=== PATIENT | female | born 2005 | race Caucasian/White ===

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

== ENCOUNTER 2024-09-28 11:11 | Emergency (ER) | payer BC, SELFPAY ==
[2024-09-28 11:24] VITALS: BP 121/78; PULSE 82; RESP 16; TEMP 36.6; O2SAT 98
[2024-09-28 13:11] VITALS: BP 146/77; PULSE 72; RESP 20; TEMP 36.6; O2SAT 99
--- NOTE | 2024-09-28 14:10 | W.ED.GENAD ---
Discharge Plan Discharge Details Chief Complaint: EarProblem Primary Care Provider: Joo Mortensen ED Provider: Cindy Marks Home Meds and New Rx's Prescriptions: No Action Mirena 20 mcg/24 hours (7 yrs) 52 mg intrauterine device 1 device intrauterine ONCE Rx Instructions: as a single dose ciprofloxacin-dexamethasone 0.3-0.1 % drops,suspension 4 drp otic (ear) BID amoxicillin-pot clavulanate 875-125 mg tablet 1 tab PO BID 10 Days Qty: 20 0RF Rx Instructions: Take with meal. Take 1 pill every 12 hour fluconazole 150 mg tablet 150 mg PO Q3D Qty: 2 0RF Rx Instructions: may repeat second dose 72 hrs after first dose if symptoms persist famotidine 40 mg tablet See Rx Instructions .ROUTE .COMPLEX Qty: 180 0RF Dose Instruction: TAKE 1 TABLET BY MOUTH TWICE DAILY Rx Instructions: TAKE 1 TABLET BY MOUTH TWICE DAILY polyethylene glycol 3350 [Miralax] 17 gram/dose powder 17 g PO DAILY Qty: 238 0RF Rx Instructions: hold for diarrhea omeprazole 40 mg capsule,delayed release(DR/EC) 1 cap PO DAILY Patient Comments: TAKE ONE CAPSULE BY MOUTH EVERY DAY ondansetron 4 mg tablet,disintegrating 4 mg PO BID-TID PRN (Reason: nausea and vomiting) Qty: 6 0RF HPI General Date/Time Provider Initiated Documentation: 09/28/24 13:48. Limitations to Documentation: no limitations. Information obtained by: patient, RN notes reviewed and old records reviewed. History of Present Illness 18 year old F presents to the emergency department with the chief complaint of bilateral ear pain, worsening, described as severe, with intensity rated at 10. Quality is described as stabbing, and is localized to the face (bilateral ears). Patient neck. Patient started experiencing this day(s) and it has been constant. No relieving factors improve symptom(s), No exacerbating factors reported . Patient notes fever/chills, headaches, loss of appetite and malaise; denies chest pain, diaphoresis, nausea/vomiting, rash and shortness of breath. Patient did receive the following treatments prior to arrival, other (topical steroids, oral abx) Related Data Home Medications ?Medication ?Instructions ?Recorded ?Confirmed levonorgestrel 21 mcg/24 hr (up to 1 device intrauterine ONCE 03/10/22 09/13/22 8 years) 52 mg intrauterine device (Mirena) polyethylene glycol 3350 17 17 g PO DAILY #238 grams 03/24/22 04/15/22 gram/dose oral powder (Miralax) omeprazole 40 mg capsule,delayed 1 cap PO DAILY 04/14/22 04/15/22 release ondansetron 4 mg disintegrating 4 mg PO BID-TID PRN nausea and 04/14/22 09/13/22 tablet vomiting #6 tabs famotidine 40 mg tablet See Rx Instructions .Route 02/13/23 .COMPLEX #180 tabs amoxicillin 875 mg-potassium 1 tab PO BID 10 days #20 tabs 09/26/24 09/26/24 clavulanate 125 mg tablet ciprofloxacin 0.3 %-dexamethasone 4 drp otic (ear) BID 09/26/24 0.1 % ear drops,suspension fluconazole 150 mg tablet 150 mg PO Q3D 2 doses #2 tabs 09/26/24 09/26/24 Previous Rx's ?Medication ?Instructions ?Recorded polyethylene glycol 3350 17 17 g PO DAILY #238 grams 03/24/22 gram/dose oral powder (Miralax) ondansetron 4 mg disintegrating 4 mg PO BID-TID PRN nausea and 04/14/22 tablet vomiting #6 tabs famotidine 40 mg tablet See Rx Instructions .Route 02/13/23 .COMPLEX #180 tabs amoxicillin 875 mg-potassium 1 tab PO BID 10 days #20 tabs 09/26/24 clavulanate 125 mg tablet fluconazole 150 mg tablet 150 mg PO Q3D 2 doses #2 tabs 09/26/24 Allergies Allergy/AdvReac Type Severity Reaction Status Date / Time doxycycline AdvReac Severe vomiting Unverified 09/28/24 11:32 codeine AdvReac Intermediate unknown Unverified 09/28/24 11:32 shellfish derived AdvReac Intermediate Hives Unverified 09/28/24 11:32 Sulfa (Sulfonamide AdvReac Intermediate unknown Unverified 09/28/24 11:32 Antibiotics) General Stated Complaint: EarProblem [place]KA: 3 Review of Systems Constitutional Constitutional: Reports as per HPI, Reports fatigue, Reports fever(s), Denies headache(s), Reports lethargy, Reports malaise and Reports poor appetite Eyes Eyes: Reports as per HPI, Denies eye discharge and Denies irritation ENT Ears, Nose, Mouth, and Throat: Reports as per HPI, Reports abnormal hearing, Denies change in voice, Reports ear discharge, Reports otalgia, Denies headache(s), Denies odynophagia, Denies disequilibrium, Denies sinus pressure and Denies sore throat Cardiovascular Cardiovascular: Reports as per HPI, Denies chest pain and Denies dyspnea Respiratory Respiratory: Reports as per HPI, Denies cough and Denies dyspnea Gastrointestinal Gastrointestinal: Reports as per HPI, Denies abdominal pain, Denies change in bowel habits, Denies nausea, Denies odynophagia and Denies vomiting Integumentary/Breasts Skin/Breast: Reports as per HPI and Denies rash Neurologic Neurologic: Reports as per HPI, Reports abnormal hearing, Denies headache(s) and Denies disequilibrium Endocrine Endocrine: Reports fatigue Exam Const General: cooperative, healthy appearing, uncomfortable (tearful), no acute distress, well developed and well groomed Nutritional Appearance: average body habitus and well nourished Orientation: alert and awake [facility] Head: normal to inspection, normocephalic and atraumatic Ears: no periauricular adenopathy, external ear abnormal auricular tenderness bilaterally and pain with movement of external ear bilaterally, mastoid abnormal (tender on left) and unable to visualize TM (white discharge and swelling obstructing view) bilaterally General nose exam: external nose normal and nares normal Face and sinus: normal facial exam, sinuses nontender and face symmetric Mouth: oral mucosae normal, lip normal, tongue normal, oropharynx normal and moist mucous membranes Teeth and gingiva: dentition normal (recent dental work visualized left lower tooth) Throat: posterior oropharynx normal, tonsils normal and uvula midline Eyes General: appearance normal, both eyes and all related structures Neck Neck: normal visual inspection, full ROM, no lymphadenopathy and no meningeal signs Resp Effort & Inspection: normal respiratory effort, able to speak in complete sentences and no respiratory distress Auscultation: clear to auscultation bilaterally, no rales, no rhonchi and no wheezes Cardio Rate: regular rate Rhythm: regular rhythm Heart Sounds: S1 normal and S2 normal Skin General skin exam: no rashes or lesions noted Neuro General: patient alert and patient awake Cognition: normal cognition Speech: speech normal Gait: normal gait Course Vital Signs Vital signs: Vital Signs Temperature 36.6 C 04/16/25 11:24 Pulse 82 09/28/24 11:24 Respiratory Rate 16 09/28/24 11:24 Blood Pressure 121/78 09/28/24 11:24 Pulse Oximetry 98 09/28/24 11:24 Temperature 36.6 C 09/28/24 13:11 Temperature Source Oral 09/28/24 13:11 Pulse 72 09/28/24 13:11 Pulse Rhythm Regular 09/28/24 13:11 Pulse Strength Normal 09/28/24 13:11 Respiratory Rate 20 09/28/24 13:11 Respiratory Effort Normal 09/28/24 13:11 Respiratory Depth Normal 09/28/24 13:11 Respiratory Pattern Normal 09/28/24 13:11 Blood Pressure 146/77 H 09/28/24 13:11 Blood Pressure Mean 100 09/28/24 13:11 Blood Pressure Position Sitting 09/28/24 13:11 Pulse Oximetry 99 09/28/24 13:11 Oxygen Delivery Method Room Air 09/28/24 13:11 Oxygen Flow Rate 0 09/28/24 13:11 Pain Level 8 09/28/24 11:24 Medical Decision Making Patient is a pleasant 18-year-old female, brought in by her mother, with chief complaint of bilateral ear pain. Patient reports that the pain began about 4 days ago and she was initially seen in [facility]. She Reports That She Has Been Using Ciprofloxacin and Dexamethasone Drops As Prescribed for the past 4 Days. Despite This, the Patient's Pain Has Increased. She Was Then Seen at [facility] 2 Days Ago to Confirm Diagnosis of Otitis Externa. Patient Has Not Had Any Issues like This Historically. Unclear Etiology Cause As Patient Did Not Use Any earplugs, has not been swimming. In the addition to the ciprofloxacin and dexamethasone drops, patient was also started on Augmentin. Despite this, the pain has continued to increase send patient is having difficulty hearing. On exam, patient appears anxious and uncomfortable but not acutely toxic. She is afebrile and appears non-toxic. Patient does not have any erythema or appreciable swelling around the ears but she does have some redness and dry skin at the lateral part of the internal auditory canal. Both of these are all quite swollen compared to the left side which she was more tender and does have white thick discharge. Hearing is diminished but still seems adequate. She has tenderness over kelton left mastoid. She has discomfort when opening the mouth which does limit this some- causes radiation to the left ear. No findings of meningitis. With the progression of the symptoms despite conservative management, will obtain imaging to evaluate for any abscess, early infiltrates this is mastoiditis. Will give Tylenol and Toradol to help with discomfort. Management thus far does seem quite reasonable, unclear why she is not responding well but the patient would likely benefit from awake as she seems to have difficulty getting the drops transiently infiltrating into the despite these being appropriate management. At the midnight shift, care transitioned to oncoming clinician with imaging pending. I did hold off on placing him awake until the imaging has been completed as do not want this to cause any issues with visualization. Quality:SDOH Health Related Social Needs: No Data to Display PFSH All Active Problems (Updated 10/14/22 @ 00:03 by CHITRA DEJESUS) COVID-19 (Acute) Constipation (Acute) GERD (gastroesophageal reflux disease) (Chronic) Abdominal pain (Acute) Medical History Anxiety Chronic constipation Muscular dystrophy Surgical History Hx of knee surgery Social History Smoking/Tobacco Use Status: Never Smoking risk assessment performed?: Yes Alcohol Intake: never Drug use: Never Substance use type: does not use Housing: house Do you feel safe at home: Yes Do you feel safe in your relationship?: Yes
--- NOTE | 2024-09-28 14:36 | DI.CT_ITS ---
Exam(s) CT NECK W EXAM: CT NECK W CLINICAL HISTORY: otitis externa with mastoid tenderness. TECHNIQUE: Imaging Protocol: Axial computed tomography images with coronal and sagittal reformatted images were created and reviewed CONTRAST MATERIAL: Intravenous: Omnipaque 350 Contrast volume:100 ml contrast COMPARISON: No exams were available for comparison FINDINGS: Parotids: Normal. Submandibular glands: Normal. Thyroid gland: Normal. Lymph nodes: There are scattered lymph nodes seen along the level one to level three all measuring le ss than 8 mm in short axis diameter which are physiologic in nature. Carotids arteries: No significant stenosis or dissection. Vertebral arteries: No significant stenosis or dissection. The floor the mouth is unremarkable. The tonsils and adenoids are unremarkable. The epiglottis and vocal cords are within normal limits. Lungs: Images through both lung apices are unremarkable. Bones: No areas of bony destruction. Cervical spine is unremarkable. Visualized portions of the brain and orbits: Unremarkable. Sinuses and mastoids: Clear. No bony destruction. Soft tissues: there is soft tissue density material within both external auditory canals as well as s oft tissue swelling around both external auditory canals which appears roughly symmetric. No visible drainable abscess or abnormal gas collection. The internal auditory canals appear clear. IMPRESSION: Findings consistent with bilateral otitis externa. No bony destruction is visible. No abscess or fl uid collection. RADIATION DOSE DELIVERED: Total DLP DATA REPOSITORY: All CT scans at this facility are submitted to the National Radiology Data Registry (NRDR) Dose Index Registry (DIR) with the [employer] ([employer]). RADIATION OPTIMIZATION: All CT scans at this facility use at least one of these dose optimization te chniques: automated exposure control; mA and/or kV adjustment per patient size (includes targeted exa ms where dose is matched to clinical indication); or iterative reconstruction.
[2024-09-28 15:04] LABS: Abs Immature Grans 0.03 10^3/uL (0.0-0.06); Absolute Basophil Count 0.05 10^3/uL (0.0-0.2); Absolute Eosinophil Count 0.12 10^3/uL (0.0-0.7); Absolute Lymphocyte Count 1.69 10^3/uL (1.2-3.4); Absolute Monocyte Count 0.53 10^3/uL (0.1-0.8); Basophils % 0.5 %; Eosinophils % 1.1 %; HCT 45.1 % (36.0-46.0); HGB 15.2 g/dL (11.2-15.7); Immature Grans % 0.3 %; Lymphocytes % 15.8 %; MCH 30.8 pg (27.0-33.0); MCHC 33.7 % (32.0-36.0); MCV 91 fL (80-95); MPV 9.7 fL (8.0-11.0); Monocytes % 4.9 %; Neutrophils % 77.4 %; Platelet Count 286 10^3/uL (130-400); RBC 4.94 10^6/uL (3.93-5.22); RDW 13.1 % (11.7-14.6); RDW-SD 43.8 fL; WBC 10.72 10^3/uL (4.4-10.8)
[2024-09-28] MEDS: Ketorolac 30 MG/ML VIAL IVP (15:08)
[2024-09-28] MEDS: Acetaminophen 500 MG TAB 1000 MG PO (15:08)
[2024-09-28] MEDS: Normal Saline 1,000 ML 1000 ML IV (15:09)
[2024-09-28 15:24] VITALS: BP 139/85; PULSE 89; RESP 16; TEMP 36.9; O2SAT 97
[2024-09-28 15:31] LABS: ALT 46 U/L (14-59); AST 18 U/L (15-37); Albumin 3.6 g/dL (3.4-5.0); Alkaline Phosphatase 85 U/L (46-116); Anion Gap 11.8 mmol/L (3-11); BUN 5 mg/dL (7-18); Bilirubin, Total 0.5 mg/dL (0.2-1.0); CO2 25.2 mmol/L (21.0-32.0); CREATININE 0.7 mg/dL (0.55-1.02); Calcium 9.4 mg/dL (8.5-10.1); Chloride 105 mmol/L (98-107); Glucose 83 mg/dL (74-106); Magnesium 1.9 mg/dL (1.8-2.4); Potassium 3.5 mmol/L (3.5-5.1); Sodium 142 mmol/L (136-145); Total Protein 8.1 g/dL (6.4-8.2)
[2024-09-28] MEDS: Omnipaque 350 MG/ML 100 ML BTL IJ (15:36)
[2024-09-28] MEDS: Normal Saline - Diluent 50 ML VIAL IJ (15:36)
--- NOTE | 2024-10-01 06:30 | W.ED.FU ---
Date of service: 10/01/24 Time of Service: 06:30 Follow Up Plan: Patient did request that I evaluate her left ear in follow-up. Left ear still does demonstrate evidence of otitis externa. She is out of her Ciprodex drops. I do feel that it is reasonable to refill this for continued treatment. Right tympanic membrane and right otic canal are notably improved in appearance. No evidence of tympanic membrane rupture bilaterally. Ciprodex prescription was given.
== END 2024-09-28 16:41 | disposition home or self-care (01) ==
PROVIDERS: Physician Assistant; Emergency Provider Physician Assistant; PCP Physician Assistant Medical
DX: H60.503 Unspecified acute noninfective otitis externa, bilateral (principal); G71.00 Muscular dystrophy, unspecified
CPT/HCPCS: 36415; 70491; 80053; 96361; 96374; 99285; 83735; 85025; J1885; J3490

== ENCOUNTER 2024-10-05 07:45 | Emergency (ER) | payer BC, SELFPAY ==
[2024-10-05 07:49] VITALS: BP 146/86; PULSE 71; RESP 18; TEMP 36.3; O2SAT 99
[2024-10-05 07:52] VITALS: BP 146/86; PULSE 71; RESP 18; TEMP 36.3; O2SAT 99
--- NOTE | 2024-10-05 07:54 | DI.CT_ITS ---
Exam(s) CT ABDOMEN PELVIS W EXAM: CT ABDOMEN PELVIS W CLINICAL HISTORY: L. flank, LLQ and periumbilical abd pain, vomiting TECHNIQUE: Imaging Protocol: Axial computed tomography images with coronal and sagittal reformatted images were created and reviewed. CONTRAST MATERIAL: Intravenous: Omnipaque 350 Contrast volume:75 mL Oral: No COMPARISON: CT CT ABDOMEN PELVIS W from 04/10/[address] CHEST PE CTA from 09/13/2022 FINDINGS: ABDOMEN: Lung Bases: No acute abnormality. Liver: Normal density. No measurable mass. Portal, Superior Mesenteric, and Splenic Veins: Unremarkable. Gallbladder and Biliary Tract: No radiodense calculus or dilation. Pancreas: Normal density, no abnormal calcifications or inflammatory process. Spleen: Normal. Adrenals: No masses seen. Kidneys: Normal size, contour and axis. No radiodense stones or obstructive uropathy. No masses seen. Abdominal Aorta: Abdominal portion non-dilated. Bowel: No obstruction or bowel wall thickening. Appendix is unremarkable. Peritoneal Cavity: No ascites, collection or mesenteric inflammatory response. No free air. Lymph Nodes: Within normal limits. Bones: Within normal limits for the patient's age. Soft Tissues: Unremarkable. PELVIS: Bladder: There is a 2 mm calcification in the dependent portion of the urinary bladder which may repr esent a recently passed stone. Reproductive Organs: There is an IUD which appears in good position. There is a 1.6 cm corpus luteal cyst on the right ovary. The ovaries are otherwise unremarkable. Lymph Nodes: Within normal limits. Bones: Within normal limits for the patient's age. IMPRESSION: 1. 2 mm calcification in the dependent portion of the urinary bladder which may represent a recently passed stone. 2. Left nephrolithiasis. No hydronephrosis. 3. Unremarkable bowel. No evidence of obstruction or inflammation. RADIATION DOSE DELIVERED: 664.91mGy.cm Total DLP DATA REPOSITORY: All CT scans at this facility are submitted to the National Radiology Data Registry (NRDR) Dose Index Registry (DIR) with the [employer] ([employer]). RADIATION OPTIMIZATION: All CT scans at this facility use at least one of these dose optimization te chniques: automated exposure control; mA and/or kV adjustment per patient size (includes targeted exa ms where dose is matched to clinical indication); or iterative reconstruction.
--- NOTE | 2024-10-05 08:07 | W.ED.GENAD ---
Discharge Plan Disposition Patient Disposition: Home Condition: Stable Discharge Details Clinical Impression: Calculus of left kidney Primary Care Provider: Joo Mortensen ED Provider: Lori Patel Home Meds and New Rx's Prescriptions: New tamsulosin [Flomax] 0.4 mg capsule 0.4 mg PO DAILY 14 Days Qty: 14 0RF morphine 15 mg tablet 15 mg PO Q6H PRNQty: 5 0RF ondansetron 4 mg tablet,disintegrating 4 mg PO Q8H PRNQty: 10 0RF No Action Mirena 20 mcg/24 hours (7 yrs) 52 mg intrauterine device 1 device intrauterine ONCE Rx Instructions: as a single dose ciprofloxacin-dexamethasone 0.3-0.1 % drops,suspension 4 drp otic (ear) BID amoxicillin-pot clavulanate 875-125 mg tablet 1 tab PO BID 10 Days Qty: 20 0RF Rx Instructions: Take with meal. Take 1 pill every 12 hour fluconazole 150 mg tablet 150 mg PO Q3D Qty: 2 0RF Rx Instructions: may repeat second dose 72 hrs after first dose if symptoms persist famotidine 40 mg tablet See Rx Instructions .ROUTE .COMPLEX Qty: 180 0RF Dose Instruction: TAKE 1 TABLET BY MOUTH TWICE DAILY Rx Instructions: TAKE 1 TABLET BY MOUTH TWICE DAILY polyethylene glycol 3350 [Miralax] 17 gram/dose powder 17 g PO DAILY Qty: 238 0RF Rx Instructions: hold for diarrhea omeprazole 40 mg capsule,delayed release(DR/EC) 1 cap PO DAILY Patient Comments: TAKE ONE CAPSULE BY MOUTH EVERY DAY ondansetron 4 mg tablet,disintegrating 4 mg PO BID-TID PRN (Reason: nausea and vomiting) Qty: 6 0RF Discharge Instructions Instructions: Kidney Stone, Adult ED Additional Instructions: You were seen in the emergency department today for evaluation of left flank and abdominal pain and were found to have passed a kidney stone. The remainder of your workup including laboratory studies and CT was reassuring. You have no sign of urinary tract infection, your electrolytes are safe, and your kidneys look healthy. One of your liver enzymes, ALT, is very slightly elevated, this can be followed by your primary care provider and does not require any change to your lifestyle or medications at this time. Please use therapeutic dosing of Tylenol (acetaminophen) & Advil (ibuprofen) in an alternating fashion as follows: Take 1000mg of Tylenol every 6 hours without missing doses- that is 4 times per day. [place] in between the Tylenol doses, take 600mg of Advil also on a 6 hour schedule, that is also 4 times per day. With this strategy, you will be taking something for fever/pain as often as every 3 hours. The daily maximum dosing of Tylenol is 4000mg, and the daily maximum dosing of Advil is 2400mg. Please note that some common cold medications & prescription pain medications may contain acetaminophen and you need to read OTC drug labels and factor that in to maximum daily doses. Please continue to maintain good hydration, and I provided you with a prescription for Flomax to be taken daily while you are still having pain to increase the flow of urine and allow the stone to fully pass. Additionally, I have provided you with a short course of oral morphine which you can use for breakthrough pain. Avoid driving or operating machinery or working while taking this medication as it can cause sedation. Please follow-up with your primary care provider in the next few days to discuss this visit and any symptoms that change, worsen, or persist. Thank you for allowing us to be part of your care. Stand Alone Forms: Work Release HPI General Mode of arrival: ambulatory. Date/Time Provider Initiated Documentation: 10/05/24 07:45. Limitations to Documentation: no limitations. Information obtained by: patient and old records reviewed. HPI Narrative: This is a 18-year-old female patient with a past medical history significant for IBS, muscular dystrophy, and a recent course of bilateral otitis externa, presenting for evaluation of left-sided flank and abdominal pain with vomiting. She reports awakening this morning with severe left-sided flank pain, initially attributing it to a need for bowel movement. Despite multiple bowel movements, the pain persisted. She subsequently experienced vomiting and profuse sweating, accompanied by a general feeling of malaise. She does not report any hematemesis or hematochezia. Her condition was stable the previous night, although she felt unusually fatigued. She describes a sensation of lethargy and cold sweats but reports no fever. Her oral intake has been limited to sips of water, which she subsequently vomited. She has not taken any analgesics such as Tylenol or ibuprofen today. She has not had any recent gastrointestinal issues or surgeries. She has a history of irritable bowel syndrome (IBS), but the current symptoms are distinct from her typical IBS manifestations. She has not had any dysuria or hematuria. She has an intrauterine device (IUD) in place for contraception. She has not had any adverse reactions to contrast media in the past. She attempted to alleviate her symptoms with Zofran, but it was ineffective. Supplemental Information She had a follow-up for her ears yesterday and is supposed to start prednisone today, but she has not taken it yet. She was on antibiotic drops and Augmentin, which she finished on Thursday. Related Data Home Medications ?Medication ?Instructions ?Recorded ?Confirmed levonorgestrel 21 mcg/24 hr (up to 1 device intrauterine ONCE 03/10/22 09/13/22 8 years) 52 mg intrauterine device (Mirena) polyethylene glycol 3350 17 17 g PO DAILY #238 grams 03/24/22 04/15/22 gram/dose oral powder (Miralax) omeprazole 40 mg capsule,delayed 1 cap PO DAILY 04/14/22 04/15/22 release ondansetron 4 mg disintegrating 4 mg PO BID-TID PRN nausea and 04/14/22 09/13/22 tablet vomiting #6 tabs famotidine 40 mg tablet See Rx Instructions .Route 02/13/23 .COMPLEX #180 tabs amoxicillin 875 mg-potassium 1 tab PO BID 10 days #20 tabs 09/26/24 09/26/24 clavulanate 125 mg tablet ciprofloxacin 0.3 %-dexamethasone 4 drp otic (ear) BID 09/26/24 0.1 % ear drops,suspension fluconazole 150 mg tablet 150 mg PO Q3D 2 doses #2 tabs 09/26/24 09/26/24 morphine 15 mg immediate release 15 mg PO Q6H PRN #5 tabs 10/05/24 tablet ondansetron 4 mg disintegrating 4 mg PO Q8H PRN #10 tabs 10/05/24 tablet tamsulosin 0.4 mg capsule (Flomax) 0.4 mg PO DAILY 2 weeks #14 caps 10/05/24 Previous Rx's ?Medication ?Instructions ?Recorded polyethylene glycol 3350 17 17 g PO DAILY #238 grams 03/24/22 gram/dose oral powder (Miralax) ondansetron 4 mg disintegrating 4 mg PO BID-TID PRN nausea and 04/14/22 tablet vomiting #6 tabs famotidine 40 mg tablet See Rx Instructions .Route 02/13/23 .COMPLEX #180 tabs amoxicillin 875 mg-potassium 1 tab PO BID 10 days #20 tabs 09/26/24 clavulanate 125 mg tablet fluconazole 150 mg tablet 150 mg PO Q3D 2 doses #2 tabs 09/26/24 morphine 15 mg immediate release 15 mg PO Q6H PRN #5 tabs 10/05/24 tablet ondansetron 4 mg disintegrating 4 mg PO Q8H PRN #10 tabs 10/05/24 tablet tamsulosin 0.4 mg capsule (Flomax) 0.4 mg PO DAILY 2 weeks #14 caps 10/05/24 Allergies Allergy/AdvReac Type Severity Reaction Status Date / Time doxycycline AdvReac Severe vomiting Unverified 09/28/24 11:32 codeine AdvReac Intermediate unknown Unverified 09/28/24 11:32 shellfish derived AdvReac Intermediate Hives Unverified 09/28/24 11:32 Sulfa (Sulfonamide AdvReac Intermediate unknown Unverified 09/28/24 11:32 Antibiotics) General Stated Complaint: FlankPain WALESKA: 3 Exam Narrative Exam Narrative: Gen: awake and alert, appears uncomfortable, but well nourished. HEENT: PERRL, mucous membranes moist. Neck: Supple, full range of motion, no observable masses Lungs: No increased work of breathing, lung sounds clear and equal bilaterally without wheezes, rhonchi, or rales. CV: Heart with regular rate and rhythm, no murmurs auscultated. Strong and symmetrical radial pulses. Abdomen: Soft, nondistended, tender to palpation primarily in the left lower quadrant and periumbilical region with some guarding, no rigidity. MSK: No joint swelling, no redness. Full ROM without limitation, no external traumatic findings. Left flank pain without overlying skin changes, no midline spinal pain Skin: No rashes or lesions to visualized skin. Normal color, warm, and dry. Neuro: Speaking in full sentences, face symmetrical. No focal motor or sensory deficits. Ambulates with steady gait. Psych: Appropriate for situation. Course Vital Signs Vital signs: Vital Signs Temperature 36.3 C L 10/05/24 07:49 Pulse 71 10/05/24 07:49 Respiratory Rate 18 10/05/24 07:49 Blood Pressure 146/86 H 10/05/24 07:49 Pulse Oximetry 99 10/05/24 07:49 Temperature 36.3 C L 10/05/24 07:52 Temperature Source Oral 10/05/24 07:52 Pulse 71 10/05/24 07:52 Respiratory Rate 18 10/05/24 07:52 Blood Pressure 146/86 H 10/05/24 07:52 Pulse Oximetry 99 10/05/24 07:52 Oxygen Delivery Method Room Air 10/05/24 07:52 Oxygen Flow Rate 0 10/05/24 07:52 Medical Decision Making This is a 18-year-old female patient presenting for evaluation of abdominal and flank pain, nausea and vomiting, and general malaise. My differential includes but is not limited to urinary pathology including UTI, pyelonephritis, renal stones. Considered intra-abdominal abnormalities including diverticulitis, IBS flare, bowel obstruction, appendicitis, gastroenteritis, pancreatitis, cholecystitis. I considered metabolic electrolyte derangements, dehydration, kidney injury. The patient utilizes an IUD for prevention, though I did consider ectopic . No pelvic pain or reported vaginal discharge to increase my concern for PID/TOA. Given the guarding and tenderness with physical examination, I do think it is prudent to proceed with CT abdomen and pelvis with contrast, as well as laboratory studies to include CBC, CMP, magnesium, lipase, urinalysis, and [id number] . I will provide the patient with a liter of IV fluids, Zofran, Tylenol, and Toradol for initial symptomatic management of pain and nausea. ED Course: - IV fluids administered - Toradol given - Zofran administered - Tylenol provided - CT scan of abdomen performed and reviewed by myself. Radiology report also reviewed: 2 mm stone in bladder consistent with recently passed kidney stone, normal corpus luteum cyst on right ovary, IUD in place, no hydronephrosis - Prescription for Flomax issued - Short course of oral morphine prescribed for severe breakthrough pain - Urinalysis with hematuria but no evidence for infection that would suggest infected stone. - I independently interpreted the laboratory studies, which show no significant leukocytosis, anemia, or thrombocytopenia. The chemistry panel is without evidence of electrolyte abnormality, kidney dysfunction, or liver injury. Other than an isolated elevation in her ALT to 83 Final Assessment: CT scan confirms passage of kidney stone into bladder. Conservative pain management with ibuprofen and Tylenol recommended. Flomax prescribed to aid stone expulsion. Adequate hydration advised. Short course of oxycodone for severe pain. Clinical Impression: - Kidney stones - Nausea and vomiting Disposition: - Discharge - Follow-Up: Consult primary care physician if pain persists Patient Education: Discussed pain management, hydration, and medication schedule. Advised on the use of Flomax and oxycodone. MDM Components Evaluation: - Number of Differential Diagnoses or Management Options: Kidney stones - Amount and Complexity of Data Reviewed: CT scan, laboratory tests, urine analysis - Risk of Complication and Morbidity or Mortality: Moderate due to potential recurrent kidney stones and severe pain Lori Patel MD Patient consented to the use of [facility] for this patient encounter. Medical Records Medical records reviewed: Yes I reviewed the patient's medical records. Lab Data Lab results reviewed: Yes I reviewed the patient's lab results. Quality:SDOH Health Related Social Needs: No Data to Display PFSH All Active Problems (Updated 10/05/24 @ 10:10 by Lori Patel MD) Calculus of left kidney (Acute) Bilateral otitis externa (Acute) COVID-19 (Acute) Constipation (Acute) GERD (gastroesophageal reflux disease) (Chronic) Abdominal pain (Acute) Medical History Anxiety Chronic constipation Muscular dystrophy Surgical History Hx of knee surgery Social History Smoking/Tobacco Use Status: Never Smoking risk assessment performed?: Yes Alcohol Intake: never Drug use: Never Substance use type: does not use Housing: house Do you feel safe at home: Yes Do you feel safe in your relationship?: Yes
[2024-10-05] MEDS: ACETAMINOPHEN 1,000 MG/100 ML BAG 400 MG IVPB (08:14)
[2024-10-05] MEDS: Lactated Ringers 1,000 ML 1000 ML IV (08:14)
[2024-10-05] MEDS: Ketorolac 30 MG/ML VIAL 15 MG IVP (08:14)
[2024-10-05] MEDS: Ondansetron 4 MG/2 ML VIAL IVP (08:15)
[2024-10-05 08:17] LABS: Abs Immature Grans 0.04 10^3/uL (0.0-0.06); Absolute Eosinophil Count 0.09 10^3/uL (0.0-0.7); Absolute Lymphocyte Count 1.62 10^3/uL (1.2-3.4); Absolute Monocyte Count 0.45 10^3/uL (0.1-0.8); Absolute Neutrophil Count 8.98 10^3/uL (1.2-6.7); Basophils % 0.4 %; Eosinophils % 0.8 %; HCT 44.5 % (36.0-46.0); HGB 14.7 g/dL (11.2-15.7); Immature Grans % 0.4 %; Lymphocytes % 14.4 %; MCH 30.1 pg (27.0-33.0); MCV 91 fL (80-95); MPV 9.6 fL (8.0-11.0); Platelet Count 369 10^3/uL (130-400); RBC 4.89 10^6/uL (3.93-5.22); RDW 13.1 % (11.7-14.6); RDW-SD 43.7 fL; WBC 11.23 10^3/uL (4.4-10.8)
[2024-10-05 08:19] LABS: Absolute Basophil Count 0.04 10^3/uL (0.0-0.2)
[2024-10-05 08:43] LABS: ALT 83 U/L (14-59); AST 27 U/L (15-37); Albumin 3.8 g/dL (3.4-5.0); Alkaline Phosphatase 78 U/L (46-116); Anion Gap 10.6 mmol/L (3-11); BUN 12 mg/dL (7-18); Bilirubin, Total 0.5 mg/dL (0.2-1.0); CO2 26.4 mmol/L (21.0-32.0); CREATININE 0.8 mg/dL (0.55-1.02); Calcium 9.4 mg/dL (8.5-10.1); Chloride 105 mmol/L (98-107); Estimated GFR 108.11 (mL/min/1.73m2); Glucose 118 mg/dL (74-106); Lipase 27 U/L (<78); Potassium 3.9 mmol/L (3.5-5.1); Sodium 142 mmol/L (136-145); Total Protein 7.8 g/dL (6.4-8.2)
[2024-10-05 08:50] VITALS: BP 108/38; PULSE 57; O2SAT 100
[2024-10-05 09:01] VITALS: BP 105/45; PULSE 65; O2SAT 99
[2024-10-05] MEDS: Normal Saline - Diluent 50 ML VIAL IJ (09:15)
[2024-10-05] MEDS: Omnipaque 350 MG/ML 500 ML BTL-Imaging package IJ (09:16)
[2024-10-05 09:48] LABS: Bilirubin Negative (Negative); Blood Moderate (Negative); Clarity Clear (Clear); Glucose Negative (Negative); Ketones Negative (Negative); Leukocyte Esterase Negative (Negative); Nitrite Negative (Negative); Urobilinogen 0.2 mg/dL (Up to 0.2)
[2024-10-05 10:09] LABS: Bacteria Negative HPF (Negative); C & S Indicated? No; Casts Negative LPF (Negative); Crystals Negative HPF (Negative); Epithelial Cells Few HPF (Negative); Mucus Negative (Negative); RBC 20-50 HPF (0-2); WBC Negative HPF (0-5)
== END 2024-10-05 10:37 | disposition home or self-care (01) ==
PROVIDERS: Emergency Provider Emergency Medicine; PCP Physician Assistant Medical
DX: N20.0 Calculus of kidney (principal); G71.00 Muscular dystrophy, unspecified
CPT/HCPCS: 36415; 80053; 82962; 83690; 96361; 96374; 96375; 99285; 74177; 81003; 81015; 83735; 85025; J0131; J1885; J2405

== ENCOUNTER 2024-11-21 16:21 | Emergency (ER) | payer OTHER, SELFPAY ==
--- NOTE | 2024-11-21 17:58 | ED.GENADUL_ITS ---
Discharge Plan Disposition Patient Disposition: Home Condition: Stable Discharge Details Clinical Impression: Chemical exposure of eye Primary Care Provider: Joo Mortensne ED Provider: Gary Blankenship Home Meds and New Rx's Prescriptions: No Action Mirena 20 mcg/24 hours (7 yrs) 52 mg intrauterine device 1 device intrauterine ONCE Rx Instructions: as a single dose ciprofloxacin-dexamethasone 0.3-0.1 % drops,suspension 4 drp otic (ear) BID fluconazole 150 mg tablet 150 mg PO Q3D Qty: 2 0RF Rx Instructions: may repeat second dose 72 hrs after first dose if symptoms persist famotidine 40 mg tablet See Rx Instructions .ROUTE .COMPLEX Qty: 180 0RF Dose Instruction: TAKE 1 TABLET BY MOUTH TWICE DAILY Rx Instructions: TAKE 1 TABLET BY MOUTH TWICE DAILY morphine 15 mg tablet 15 mg PO Q6H PRNQty: 5 0RF ondansetron 4 mg tablet,disintegrating 4 mg PO Q8H PRNQty: 10 0RF polyethylene glycol 3350 [Miralax] 17 gram/dose powder 17 g PO DAILY Qty: 238 0RF Rx Instructions: hold for diarrhea omeprazole 40 mg capsule,delayed release(DR/EC) 1 cap PO DAILY Patient Comments: TAKE ONE CAPSULE BY MOUTH EVERY DAY ondansetron 4 mg tablet,disintegrating 4 mg PO BID-TID PRN (Reason: nausea and vomiting) Qty: 6 0RF Discharge Instructions Additional Instructions: After chemical exposure to the right eye, you have thoroughly irrigated your eye and your pH is normal. There are no signs of ulceration or abrasion. Please continue to use moisturizing eyedrops as needed as your eye may be a little bit irritated after the irrigation HPI General Date/Time Provider Initiated Documentation: 11/21/24 16:28 . Limitations to Documentation: no limitations . Information obtained by: patient . HPI Narrative: 19-year-old female without significant past medical history presents with acute onset right eye pain. 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 She immediately went to the eyewash station and irrigated her eye for 15 minutes. She denies any foreign body sensation or burning. She does not wear contact lenses. Related Data Home Medications ?Medication ?Instructions ?Recorded ?Confirmed levonorgestrel 21 mcg/24 hr (up to 1 device intrauterine ONCE 03/10/22 09/13/22 8 years) 52 mg intrauterine device (Mirena) polyethylene glycol 3350 17 17 g PO DAILY #238 grams 03/24/22 04/15/22 gram/dose oral powder (Miralax) omeprazole 40 mg capsule,delayed 1 cap PO DAILY 04/14/22 04/15/22 release ondansetron 4 mg disintegrating 4 mg PO BID-TID PRN nausea and 04/14/22 09/13/22 tablet vomiting #6 tabs famotidine 40 mg tablet See Rx Instructions .Route 02/13/23 .COMPLEX #180 tabs ciprofloxacin 0.3 %-dexamethasone 4 drp otic (ear) BID 09/26/24 0.1 % ear drops,suspension fluconazole 150 mg tablet 150 mg PO Q3D 2 doses #2 tabs 09/26/24 09/26/24 morphine 15 mg immediate release 15 mg PO Q6H PRN #5 tabs 10/05/24 tablet ondansetron 4 mg disintegrating 4 mg PO Q8H PRN #10 tabs 10/05/24 tablet Previous Rx's ?Medication ?Instructions ?Recorded polyethylene glycol 3350 17 17 g PO DAILY #238 grams 03/24/22 gram/dose oral powder (Miralax) ondansetron 4 mg disintegrating 4 mg PO BID-TID PRN nausea and 04/14/22 tablet vomiting #6 tabs famotidine 40 mg tablet See Rx Instructions .Route 02/13/23 .COMPLEX #180 tabs fluconazole 150 mg tablet 150 mg PO Q3D 2 doses #2 tabs 09/26/24 morphine 15 mg immediate release 15 mg PO Q6H PRN #5 tabs 10/05/24 tablet ondansetron 4 mg disintegrating 4 mg PO Q8H PRN #10 tabs 10/05/24 tablet Allergies Allergy/AdvReac Type Severity Reaction Status Date / Time doxycycline AdvReac Severe vomiting Unverified 09/28/24 11:32 codeine AdvReac Intermediate unknown Unverified 09/28/24 11:32 shellfish derived AdvReac Intermediate Hives Unverified 09/28/24 11:32 Sulfa (Sulfonamide AdvReac Intermediate unknown Unverified 09/28/24 11:32 Antibiotics) General Stated Complaint: ChemExpose AWLESKA: 2 Exam Narrative Exam Narrative: Review of Systems: All systems reviewed & are unremarkable except as noted in HPI and below Well-developed, no acute distress NCAT Conjunctiva injected on the right eye, extraocular movements intact, no foreign body. No fluorescein uptake. Acuity normal pH 7.5 RRR Unlabored respiratory effort Medical Decision Making Emergent evaluation of chemical exposure of the right eye. MDS data sheet was pulled and poison control was contacted. Patient had already irrigated her eye for at least 15 minutes prior to my evaluation. pH is within normal limit and she does not have any additional symptoms other than the irritation from the irrigation. No fluorescein uptake. Acuity is normal and she does not wear co ntact recommend continued topical moisturizing eyedrops as needed for comfort. Return precautions advised. Quality:SDOH Health Related Social Needs: No Data to Display PFSH All Active Problems (Updated 11/21/24 @ 17:06 by Gary Blankenship MD) Chemical exposure of eye (Acute) COVID-19 (Acute) Constipation (Acute) GERD (gastroesophageal reflux disease) (Chronic) Abdominal pain (Acute) Medical History Anxiety Chronic constipation Muscular dystrophy Surgical History Hx of knee surgery Social History Smoking/Tobacco Use Status: Never Smoking risk assessment performed?: Yes Alcohol Intake: never Drug use: Never Substance use type: does not use Housing: house Do you feel safe at home: Yes Do you feel safe in your relationship?: Yes
== END 2024-11-21 17:25 | disposition home or self-care (01) ==
LOC: ER 17:11
PROVIDERS: Emergency Provider Emergency Medicine; PCP Physician Assistant Medical
DX: T65.891A Toxic effect of other specified substances, accidental (unintentional), initial encounter (principal); H57.11 Ocular pain, right eye; Y92.238 Other place in hospital as the place of occurrence of the external cause
CPT/HCPCS: 99283

== ENCOUNTER 2024-12-05 15:11 | Emergency (ER) | payer OTHER, SELFPAY ==
[2024-12-05 15:14] VITALS: BP 152/79; PULSE 96; RESP 13; TEMP 36.9; O2SAT 98
--- NOTE | 2024-12-05 15:38 | DI.RAD_ITS ---
Exam(s) XR SHOULDER RT COMPLETE 2+V EXAM: XR SHOULDER RT COMPLETE 2+V CLINICAL HISTORY: R shoulder pain. TECHNIQUE: 2D digital imaging was performed of the right shoulder. Five images were obtained. AP, Grashey, Y-view and axillary views were obtained. COMPARISON: CT CT CHEST PE CTA from 09/13/[address] NECK W from 09/28/2024 FINDINGS: BONES: No acute fracture is present. No bony destructive lesion is seen. There is a curvilinear lucency through the acromion appreciated on the axillary view likely reflecting the residual secondary ossification center. JOINTS: No dislocation present. The glenohumeral and acromioclavicular joints are well maintained. SOFT TISSUE: Normal. IMPRESSION: No acute abnormality. DATA REPOSITORY: RADIATION DOSE DELIVERED:
--- NOTE | 2024-12-05 15:56 | W.ED.GENAD ---
Discharge Plan Disposition Patient Disposition: Home Condition: Good Discharge Details Clinical Impression: Sprain of right shoulder, Injury of right rotator cuff Primary Care Provider: Joo Mortensen ED Provider: Yamil Grullon Home Meds and New Rx's Prescriptions: New lidocaine [Lidoderm] 5 % adhesive patch,medicated 1 patch Topical Q24H Qty: 15 0RF No Action Mirena 20 mcg/24 hours (7 yrs) 52 mg intrauterine device 1 device intrauterine ONCE Rx Instructions: as a single dose omeprazole 40 mg capsule,delayed release(DR/EC) 1 cap PO DAILY Patient Comments: TAKE ONE CAPSULE BY MOUTH EVERY DAY Discharge Instructions Instructions: Rotator cuff injury Additional Instructions: At this time your x-ray has returned negative, however I am concerned that you have injured your rotator cuff. Please use the sling as needed to help with pain. Please try to gently passively move your arm a few times throughout the day in all directions to help prevent frozen shoulder syndrome. Ice your shoulder regularly, use the Lidoderm patches as prescribed and apply the Voltaren gel 2-3 times per day. Take Tylenol and Motrin or Tylenol and meloxicam as needed for your pain control. Avoid any lifting or use of the shoulder until cleared by an data modeling specialist or having had complete resolution of your symptoms. We have placed a referral with our data modeling specialist as well as your [facility] specialists for follow-up. They will contact you for an appointment time. If you notice any worsening of your symptoms, or any new symptoms such as vomiting, diarrhea, fever, chills, shortness of breath, chest pain, numbness, weakness, or fainting , please return immediately to the emergency department for reevaluation. Please follow up with your primary care provider as soon as possible for reassessment and reevaluation. As always, it was a pleasure participating in your medical care today. Stand Alone Forms: Work Release Referrals: Sam Lugo MD [ [facility] STAFF PHYSICIAN, Orthopaedic Surgical] Joo Mortensen PA [Primary Care Provider, Medicine] [facility] General Date/Time Provider Initiated Documentation: 12/05/24 15:15. HPI Narrative: This is a 19-year-old female with past medical history of muscular dystrophy, previous posterior dislocation of her right shoulder in the distant past, who presents today for evaluation of right shoulder pain. 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 Patient states that she was at the head of the bed, her elbows were by her sides, and when they all went to lift the obese patient off the floor she had a sudden searing stabbing pain in her right shoulder that radiated down to her hand. This is about 3 hours prior to arrival. Since then she has had significant pain in her shoulder whenever she tries to move it. She has also noticed numbness and tingling in her hand, as well as some in the arm as well. She has no neck pain or stiffness. No other complaints at this time. She did take a meloxicam this morning for some stiffness, but has not taken anything since. Related Data Home Medications ?Medication ?Instructions ?Recorded ?Confirmed levonorgestrel 21 mcg/24 hr (up to 1 device intrauterine ONCE 03/10/22 12/05/24 8 years) 52 mg intrauterine device (Mirena) omeprazole 40 mg capsule,delayed 1 cap PO DAILY 04/14/22 12/05/24 release lidocaine 5 % topical patch 1 patch topical Q24H #15 ea 12/05/24 (Lidoderm) Previous Rx's ?Medication ?Instructions ?Recorded lidocaine 5 % topical patch 1 patch topical Q24H #15 ea 12/05/24 (Lidoderm) Allergies Allergy/AdvReac Type Severity Reaction Status Date / Time doxycycline AdvReac Severe vomiting Unverified 12/05/24 15:21 codeine AdvReac Intermediate unknown Unverified 12/05/24 15:21 shellfish derived AdvReac Intermediate Hives Unverified 12/05/24 15:21 Sulfa (Sulfonamide AdvReac Intermediate unknown Unverified 12/05/24 15:21 Antibiotics) General Stated Complaint: Orthopedic WALESKA: 4 Exam Narrative Exam Narrative: 1.Const: Well-nourished, Well-developed, appearing stated age 2.Eyes: PERRL, no conjunctival injection, and symmetrical lids. 3.ENT: Atraumatic external nose and ears. Moist MM. Neck: Symmetric, trachea midline, No thyromegaly. 4.CVS: +S1/S2, Peripheral pulses 2+ and equal in all extremities. Brisk capillary refill in all extremities. 5.RESP: Unlabored respiratory effort. Clear to auscultation bilaterally. No wheezes rales or rhonchi 6.GI: Soft, Nontender/Nondistended, No hepatosplenomegaly. No guarding or rebound. 7.MSK: Right shoulder demonstrates tenderness on posterior palpation as well as tenderness on the anterior component. No redness. No warmth. No significant swelling. Pain with anterior movement, external rotation, and abduction both passively and actively. No significant pain with the opposite movements. No pain in the elbow wrist forearm or hand. No signs of dislocation. Active movement notably worsens the pain in all of those previous directions, and strength remains intact but is limited secondary to the pain. Sensation demonstrates significant dullness to sensation over the median nerve distribution, mild dullness over the radial nerve distribution, and just minimal dullness over the ulnar distribution. That being said 2 point discrimination is present in all digits. Normal movements of the finger wrist forearm and elbow. 8.Skin: Warm, Dry. No rashes or lesions. 9.Neuro: inspector repairer II-XII grossly intact. Sensation grossly intact however nuances are described in musculoskeletal, no focal neurologic deficits. 10.Psych: (AAO) x3. Appropriate mood and affect Course Vital Signs Vital signs: Vital Signs Temperature 36.9 C 12/05/24 15:14 Pulse 96 H 12/05/24 15:14 Respiratory Rate 13 12/05/24 15:14 Blood Pressure 152/79 H 12/05/24 15:14 Pulse Oximetry 98 12/05/24 15:14 Temperature 36.9 C 12/05/24 15:14 Temperature Source Tympanic 12/05/24 15:14 Pulse 96 H 12/05/24 15:14 Respiratory Rate 13 12/05/24 15:14 Blood Pressure 152/79 H 12/05/24 15:14 Blood Pressure Position Sitting 12/05/24 15:14 Pulse Oximetry 98 12/05/24 15:14 Oxygen Delivery Method Room Air 12/05/24 15:14 Oxygen Flow Rate 0 12/05/24 15:14 Pain Level 6 12/05/24 15:23 Medical Decision Making This is a 19-year-old female with past medical history of muscular dystrophy, previous posterior dislocation of her right shoulder in the distant past, who presents today for evaluation of right shoulder pain. 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 Patient states that she was at the head of the bed, her elbows were by her sides, and when they all went to lift the obese patient off the floor she had a sudden searing stabbing pain in her right shoulder that radiated down to her hand. This is about 3 hours prior to arrival. Since then she has had significant pain in her shoulder whenever she tries to move it. She has also noticed numbness and tingling in her hand, as well as some in the arm as well. She has no neck pain or stiffness. No other complaints at this time. She did take a meloxicam this morning for some stiffness, but has not taken anything since. She is right-hand dominant. Right shoulder demonstrates tenderness on posterior palpation as well as tenderness on the anterior component. No redness. No warmth. No significant swelling. Pain with anterior movement, external rotation, and abduction both passively and actively. No significant pain with the opposite movements. No pain in the elbow wrist forearm or hand. No signs of dislocation. Active movement notably worsens the pain in all of those previous directions, and strength remains intact but is limited secondary to the pain. Sensation demonstrates significant dullness to sensation over the median nerve distribution, mild dullness over the radial nerve distribution, and just minimal dullness over the ulnar distribution. That being said 2 point discrimination is present in all digits. Normal movements of the finger wrist forearm and elbow. Concern for rotator cuff injury, no evidence to suggest dislocation. X-ray shows no evidence of fracture or other abnormality otherwise. With the concern for the rotator cuff injury, we will place her in a sling, however we do recommend continued regular movements to prevent frozen shoulder syndrome. Radial pulses are intact, 2 point discrimination in her hand and arm is intact, however I do suspect there is mild nerve impingement or irritation postinjury. Will recommend NSAID therapy, Lidoderm patches, and Voltaren gel. Referral will be placed to our local data modeling specialist. The patient has seen the data modeling specialist at [facility] for her muscular dystrophy, however I do feel that more local follow-up would be helpful for the patient as this is her workplace. However we will place a simultaneous referral to [facility] for follow-up as well. Work note was given with the recommended restrictions. Discussed red flags for which to return. I have extensively reviewed the treatment plan and discharge instructions with the patient. I have addressed all patient concerns at this time. The patient was made aware of what symptoms to monitor for that would warrant a return to the emergency department. Discussed the plan with the patient, they demonstrate verbal understanding and agreement with our assessment and plan at this time. The documentation in this chart was dictated using [employer] dictation software. Please excuse any dictation errors. FINDINGS: BONES: No acute fracture is present. No bony destructive lesion is seen. There is a curvilinear lucency through the acromion appreciated on the axillary view likely reflecting the residual secondary ossification center. JOINTS: No dislocation present. The glenohumeral and acromioclavicular joints are well maintained. SOFT TISSUE: Normal. IMPRESSION: No acute abnormality. PFSH All Active Problems (Updated 12/05/24 @ 16:01 by Yamil Grullon DO) Injury of right rotator cuff (Acute) Sprain of right shoulder (Acute) Chemical exposure of eye (Acute) COVID-19 (Acute) Constipation (Acute) GERD (gastroesophageal reflux disease) (Chronic) Abdominal pain (Acute) Medical History Anxiety Chronic constipation Muscular dystrophy Surgical History Hx of knee surgery Social History Smoking/Tobacco Use Status: Never Smoking risk assessment performed?: Yes Alcohol Intake: never Drug use: Never Substance use type: does not use Housing: house Do you feel safe at home: Yes Do you feel safe in your relationship?: Yes
[2024-12-05] MEDS: Diclofenac 1% Gel 100 GM TUBE TP (16:14)
[2024-12-05] MEDS: Lidocaine 5% Patch 1 PATCH TP (16:15)
--- NOTE | 2024-12-06 08:33 | NUR.NOTE ---
Accessed Pt chart to see who Primary Care Provider is for a referral. Referral was faxed to [facility] attn: Joo Mortensen
--- NOTE | 2024-12-08 10:36 | NUR.NOTE ---
Access chart to get PCP to fax prior authorization for lidocaine 5% patches. Nursing Note:
== END 2024-12-05 16:18 | disposition home or self-care (01) ==
PROVIDERS: Emergency Provider Student in an Organized Health Care Education/Training Program; PCP Physician Assistant Medical
DX: S43.401A Unspecified sprain of right shoulder joint, initial encounter (principal); S46.001A Unspecified injury of muscle(s) and tendon(s) of the rotator cuff of right shoulder, initial encounter; X50.0XXA Overexertion from strenuous movement or load, initial encounter; Y99.0 Civilian activity done for income or pay
CPT/HCPCS: 99284 ×2; 73030

== ENCOUNTER 2024-12-27 16:30 | Outpatient (REF) | payer BC, SELFPAY ==
[2024-12-27 16:35] LABS: Hemoglobin A1C 5.1 % (<5.7)
[2024-12-27 16:59] LABS: ALT 34 U/L (14-59); AST 14 U/L (15-37); Albumin 3.7 g/dL (3.4-5.0); Alkaline Phosphatase 81 U/L (46-116); Anion Gap 9.6 mmol/L (3-11); BUN 10 mg/dL (7-18); Bilirubin, Total 0.7 mg/dL (0.2-1.0); CO2 26.4 mmol/L (21.0-32.0); Calcium 8.9 mg/dL (8.5-10.1); Calculated LDL 72 mg/dL (<100); Chloride 104 mmol/L (98-107); Cholesterol 137 mg/dL (<200); Estimated GFR 130.88 (mL/min/1.73m2); Glucose 84 mg/dL (74-106); HDL Cholesterol 60 mg/dL (>or=50); Potassium 3.8 mmol/L (3.5-5.1); Sodium 140 mmol/L (136-145); TSH 1.04 uIU/mL (0.36-3.74); Total Protein 7.4 g/dL (6.4-8.2); Triglyceride 29 mg/dL (<150)
== END 2024-12-27 16:31 | disposition home or self-care (01) ==
LOC: NCHCN 16:30
PROVIDERS: PCP Physician Assistant Medical; Visit Provider Physician Assistant Medical
DX: R74.8 Abnormal levels of other serum enzymes (principal); E66.9 Obesity, unspecified
CPT/HCPCS: 80053; 80061; 83036; 84439; 84443

== ENCOUNTER 2025-01-19 03:01 | Outpatient (CLI) | payer OTHER, SELFPAY ==
--- NOTE | 2025-01-19 08:00 | DI.RAD_ITS ---
Exam(s) RF ARTHROGRAM RAD W CT OR MRI EXAM: RF ARTHROGRAM RAD W CT OR MRI CLINICAL HISTORY: ? SLAP TEAR, R SHOULDER PAIN,S43.431a TECHNIQUE: 2D and realtime digital imaging was performed. CONTRAST MATERIAL: Water soluble contrast was administered. COMPARISON: No exams were available for comparison FINDINGS: Fluoroscopy was provided for Dr. Douglas during the performance of a right shoulder arthrogram. The patient was prepped and draped in the usual sterile fashion. Local anesthesia was administered. The joint was accessed using a spinal needle and confirmed under fluoroscopy. A solution containing 0.15 mL Dotarem, 10 cc normal saline and 10 cc Omnipaque 300 was injected into the joint. Images were obtained. The patient tolerated the procedure well. Final instructions were given to the patient and they left the department in good condition. IMPRESSION: Successful arthrogram under fluoroscopic guidance. The patient was advised to return to the emergency room if any signs of bleeding or infection occur. RADIATION DOSE DELIVERED: Ka,r=4.19 mGy Ka,r=4.19 mGy
--- NOTE | 2025-01-19 08:00 | DI.MRI_ITS ---
Exam(s) MR UPPER JOINT RT W EXAM: MR UPPER JOINT RT W CLINICAL HISTORY: R SHOULDER PAIN,slap tear,[id number]. TECHNIQUE: Multiplanar multisequence MR arthrogram of the right shoulder was performed. COMPARISON: CR XR SHOULDER RT COMPLETE 2+V from 12/05/2024 RF RF ARTHROGRAM RAD W CT OR MRI from 01/19/2025 FINDINGS: BONES: There is no fracture or contusion pattern. JOINTS: The acromioclavicular joint is normal. The glenohumeral joint is normal. The articular cartilage is unremarkable. TENDONS: Supraspinatus: Unremarkable. Infraspinatus: Unremarkable. Subscapularis: Unremarkable. Teres Minor: Unremarkable. Biceps and Eek: Unremarkable. MUSCLES: Unremarkable. GLENOID LABRUM: There is no evidence of a labral tear. SOFT TISSUES: Unremarkable. LIGAMENTS: Unremarkable. OTHER: Subacromial and subdeltoid bursae are unremarkable. IMPRESSION: 1. No evidence of a labral tear. 2. No evidence of a rotator cuff tear. DATA REPOSITORY:
[2025-01-19] MEDS: Gadoterate meglumine 20 ML VIAL IVP (14:23)
[2025-01-19] MEDS: Omnipaque 300 MG/ML 10 ML BTL IJ (14:24)
[2025-01-19] MEDS: Bupivacaine 0.25% Pres-Free 10 ML VIAL IJ (14:25)
--- NOTE | 2025-01-20 10:57 | DI.VRAD_ITS ---
PROCEDURE INFORMATION: Exam: MR Right Upper Extremity Joint With Contrast; Shoulder Exam date and time: 01/19/2025 2:42 PM Age: 19 years old Clinical indication: Right; R shoulder pain, slap tear, post arthrogram TECHNIQUE: Imaging protocol: Magnetic resonance imaging of the right upper extremity with contrast. Exam focused on the shoulder. Contrast material: DOTAREM; Contrast volume: 0.2 ml; Contrast route: INTRA-ARTICULAR (ARTHROGRAM); COMPARISON: 1. CR XR SHOULDER RT COMPLETE 2+V 12/05/2024 3:32 PM (report not provided) 2. RF ARTHROGRAM RAD W CT OR MRI 01/19/2025 1:58 PM (report not provided) FINDINGS: Bones/joints: The acromioclavicular joint is maintained. Contrast is present in the glenohumeral joint, which is normally aligned. The glenohumeral articular cartilage is intact. The bone marrow is normal in signal. The cortices are preserved. Glenoid labrum: No tear of the glenoid labrum is identified. Bursae: There is no contrast or unenhanced fluid in the subacromial, subdeltoid bursa. Supraspinatus tendon: Unremarkable. No evidence of tear. Infraspinatus tendon: Unremarkable. No evidence of tear. Subscapularis tendon: Unremarkable. No evidence of tear. Teres minor tendon: Unremarkable. No evidence of tear. Tendon of biceps brachii: Intact and in normal position. Glenohumeral ligaments: Unremarkable. Soft tissues: Soft tissue edema anteriorly relating to the injection. IMPRESSION: No labral tear or other significant abnormality identified. COMMENTS: See separate arthrogram injection procedure report for procedural description and findings. Dictated and Authenticated by: Efraín Bentley MD. Orderin Shelby Roach MD
== END 2025-01-19 03:21 ==
LOC: DI 03:01
PROVIDERS: PCP Physician Assistant Medical; Visit Provider Student in an Organized Health Care Education/Training Program
DX: S43.431A Superior glenoid labrum lesion of right shoulder, initial encounter (principal); X58.XXXA Exposure to other specified factors, initial encounter
CPT/HCPCS: 23350; 73040; 73222; J0665